=== PATIENT | male | born 1980 | race African-American/Black ===

== ENCOUNTER → 2016-12-01 | Outpatient (CLI) | payer OTHER ==
[~2016-12-01] MED LIST: CERTAGEN PO
--- NOTE | ~2016-12-01 | MR103 ---
[facility] A Service of [facility] & [facility] RADIOLOGY TEXT RESULTS PATIENT: BRANNON GIBBS LOCATION: [facility] : 78 UNIT #: [id number] AGE: [address]: Alen Montiel IV, MD SEX: M ORDER DR: [id number] [address] [address] [id number] O MR#: [id number] Acc #: [id number] NAME: BRANNON GIBBS : 1980 SEX: M STUDY DATE/TIME: 12/01/2016 10:03 UNIT: [facility] ROOM: STUDY DESCRIPTION: MR Knee Wo Contrast Lt Attending Physician: Alen Montiel M.D. Referring Physician: Alen Montiel M.D. Ordering Physician: Alen Montiel M.D. Primary Care Physician: Brannon Sumner M.D. MRI [facility]ENTER REPORT This report is preliminary unless electronic signature is present. EXAM MRI of the left knee without contrast HISTORY 36-year-old male complains of right knee pain for years, increasing swelling and instability, pain worse over the last few weeks. Clinical concern for possible ACL tear. No specific injury. COMPARISON Bilateral knee films 11/28/2016/ FINDINGS Multiplanar, multiecho imaging was performed of the left knee utilizing a high-field magnet and dedicated protocol. Examination demonstrates early degenerative arthropathy of the left knee with developing medial and lateral compartment osteophytes. No significant marrow edema. There is a small knee effusion. Fluid distends the GS bursa with a thin but sizable popliteal cyst measuring up to 5.7 cm. There is multifocal chondromalacia within the medial and lateral compartments with moderate-grade chondromalacia medial femoral condyle and focal areas of moderate-grade chondromalacia lateral femoral condyle. No definite full-thickness cartilage loss is seen. In the patellofemoral compartment, patellar cartilage unremarkable. Mild chondromalacia deep trochlear groove. In the posterior aspect of the intercondylar notch, adjacent to the PCL, there is a 1.2 cm ovoid structure compatible with intraarticular loose body. In the medial compartment, there is significant loss of meniscal volume within the posterior horn of the medial meniscus which may represent the sequelae of a previous tear, but no displaced meniscal fragment is identified. There is a small amount of meniscal tissue extending into the medial meniscotibial gutter, could represent a small flap tear. Lateral meniscus appears intact. [facility]. [facility] A Service of [facility] RADIOLOGY TEXT RESULTS PATIENT: BRANNON GIBBS LOCATION: [facility] : 78 UNIT #: [id number] AGE: [address]: Alen Montiel IV, MD SEX: M ORDER DR: The anterior cruciate ligament demonstrates laxity of its midsubstance fibers and may represent the sequelae of previous ACL tear but no convincing evidence of a high-grade injury. No definite secondary signs of ACL insufficiency are identified. The posterior cruciate ligament appears intact. Medial collateral ligament and lateral collateral ligament complex appears normal. Extensor mechanism unremarkable. There is a small amount of anterior knee edema. IMPRESSION 1. Tricompartment degenerative arthropathy of the knee with medial compartment predominance. 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 2. Small knee effusion with a sizable 1.2 cm loose body within the posterior aspect of the intercondylar notch. 3. Abnormal appearance of the medial meniscus with substantial loss of meniscal volume, particularly within the posterior body segment of the posterior horn may represent the sequelae of a prior tear. Questionable small flap tear posterior body segment of the meniscus. 4. Laxity of the ACL, nonspecific, could be related to prior ACL injury. No evidence of an acute ACL injury. Dictated by... Teja Zaman M.D. THIS IS AN ELECTRONICALLY VERIFIED REPORT Teja Zaman M.D. at 12/02/2016 5:00 PM SHAISTA/frederick TD: 12/02/2016 02:17 JOB #: [id number] MRI CENTER REPORT
== END | disposition home or self-care (01) ==
LOC: SMRI 09:40
DX: M25.462 Effusion, left knee (principal); M25.362 Other instability, left knee; M94.262 Chondromalacia, left knee; M17.12 Unilateral primary osteoarthritis, left knee; M23.42 Loose body in knee, left knee
CPT/HCPCS: 73721